=== PATIENT | male | born 1980 | race Caucasian/White ===

== ENCOUNTER 2022-08-23 09:14 | Emergency (ER) | payer OTHER ==
[2022-08-23 09:25] VITALS: BP 145/81; PULSE 85; RESP 20; TEMP 98
--- NOTE | 2022-08-23 10:28 | ED ---
General Adult HPI - General Chief complaint: Recheck/Abnormal Lab/Rx Stated complaint: pesticide on skin - [facility] Time Seen by Provider: 08/23/22 09:31 Source: patient Mode of arrival: ambulatory Limitations: no limitations - Related Data Home Medications Medication Instructions Recorded Confirmed No Known Home Medications 04/26/15 04/26/15 Allergies Allergy/AdvReac Type Severity Reaction Status Date / Time No Known Allergies Allergy Verified 08/23/22 09:24 Review of Systems ROS Statement: Those systems with pertinent positive or pertinent negative responses have been documented in the HPI. ROS Other: All systems not noted in ROS Statement are negative. Past Medical History Past Medical History: No Reported History History of Any Multi-Drug Resistant Organisms: None Reported Past Surgical History: No Surgical Hx Reported Past Psychological History: No Psychological Hx Reported Smoking Status: Current every day smoker Past Alcohol Use History: Occasional Past Drug Use History: Marijuana General Exam Limitations: no limitations Course Vital Signs 08/23/22 09:22 Temperature 98 F Pulse Rate 85 Respiratory 20 Rate Blood Pressure 145/81 O2 Sat by Pulse 20 L Oximetry Disposition Clinical Impression: Chemical exposure Disposition: HOME SELF-CARE Condition: Good Additional Instructions: We saw you today for chemical exposure to your skin. Please remove remainder of the irritant at home. Please return if any further problems to occur. Is patient prescribed a controlled substance at d/c from ED?: No Referrals: None,Stated [Primary Care Provider] - 1-2 days Time of Disposition: 10:28
--- NOTE | 2022-08-23 15:41 | ED ---
General Adult HPI - General Chief complaint: Recheck/Abnormal Lab/Rx Stated complaint: pesticide on skin - [facility] Time Seen by Provider: 08/23/22 09:31 Source: patient Mode of arrival: ambulatory Limitations: no limitations - History of Present Illness Initial comments: This 41-year-old male presents with a complaint of skin exposure to work chemicals. He states that he was at work and he was sprayed with a glue-like material. This came into contact with his arms and legs. It is still stuck to him. This happened just prior to arrival. He denies any ocular exposure. He denies any degree of pain. No other complaints or modifying factors. - Related Data Home Medications Medication Instructions Recorded Confirmed No Known Home Medications 04/26/15 04/26/15 Allergies Allergy/AdvReac Type Severity Reaction Status Date / Time No Known Allergies Allergy Verified 08/23/22 09:24 Review of Systems ROS Statement: Those systems with pertinent positive or pertinent negative responses have been documented in the HPI. ROS Other: All systems not noted in ROS Statement are negative. Past Medical History Past Medical History: No Reported History History of Any Multi-Drug Resistant Organisms: None Reported Past Surgical History: No Surgical Hx Reported Past Psychological History: No Psychological Hx Reported Smoking Status: Current every day smoker Past Alcohol Use History: Occasional Past Drug Use History: Marijuana General Exam Limitations: no limitations Extremities exam: Present: normal inspection. Absent: tenderness Neurological exam: Present: alert, oriented X3. Absent: motor sensory deficit Psychiatric exam: Present: normal affect, normal mood Skin exam: Present: other (The patient does have a Silverio yellowish substance over large portions of his arms and legs.) Course Vital Signs 08/23/22 09:22 Temperature 98 F Pulse Rate 85 Respiratory 20 Rate Blood Pressure 145/81 O2 Sat by Pulse 20 L Oximetry Medical Decision Making - Medical Decision Making The patient was seen and examined. He was brought to the shower and was able to remove most of the substance. Per the safety sheet in relation to this chemical, they essentially recommend washing this off of her skin. There apparently is no further treatment in this regard. It is felt as though he stable for discharge. Return parameters are discussed. Disposition Clinical Impression: Chemical exposure Disposition: HOME SELF-CARE Condition: Good Additional Instructions: We saw you today for chemical exposure to your skin. Please remove remainder of the irritant at home. Please return if any further problems to occur. Is patient prescribed a controlled substance at d/c from ED?: No Referrals: None,Stated [Primary Care Provider] - 1-2 days Time of Disposition: 10:30
== END 2022-08-23 10:33 | disposition home or self-care (01) ==
LOC: EC 09:14
DX: Z77.098 Contact with and (suspected) exposure to other hazardous, chiefly nonmedicinal, chemicals (principal); F17.200 Nicotine dependence, unspecified, uncomplicated
CPT/HCPCS: 99283